=== PATIENT | male | born 1960 | race African-American/Black ===

== ENCOUNTER 2016-11-22 16:30 | Emergency (ER) | payer OTHER ==
--- NOTE | ~2016-11-22 | CR72 ---
[facility] A Service of [facility] & [facility] RADIOLOGY TEXT RESULTS PATIENT: MILAGRO SOW LOCATION: [facility] : 64 UNIT #: [id number] AGE: [address]: Luis Carlos Schultz MD SEX: M ORDER DR: [id number] [facility] [address] [place], [place] [address] [id number] E MR#: [id number] Acc #: [id number] NAME: MILAGRO SOW : 1960 SEX: M STUDY DATE/TIME: 11/22/2016 22:19 UNIT: [facility] ROOM: STUDY DESCRIPTION: CR Chest Single View Portable Attending Physician: Luis Carlos Schultz M.D. Ordering Physician: Luis Carlos Schultz M.D. Primary Care Physician: Primary Care Physician No MEDICAL IMAGING REPORT This report is preliminary unless electronic signature is present EXAM Portable chest INDICATION Pain from neck to groin, mild congestion for a week. FINDINGS A portable view of the chest was obtained. There is no comparison. The heart size and vascularity are normal and the lungs are clear and the bones are unremarkable. IMPRESSION No active disease. Dictated by... Ciro Llanos M.D. THIS IS AN ELECTRONICALLY VERIFIED REPORT Ciro Llanos M.D. at 11/24/2016 5:01 AM Benja TD: 11/23/2016 22:33 JOB #: [id number] MEDICAL IMAGING REPORT Page 1 of 1 COPY
--- NOTE | ~2016-11-22 | EKG ---
PATIENT: MILAGRO SOW UNIT #: [id number] Ventricular Rate: 66 BPM Atrial Rate: 66 BPM P-R Interval: 188 ms QRS Duration: 92 ms Q-T Interval: 410 ms QTC Calculation(Bezet): 429 ms P Redding: 55 degrees Calculated R Redding: 27 degrees Calculated T Redding: 43 degrees Diagnosis Line: Normal sinus rhythm with sinus arrhythmia Diagnosis Line: Normal ECG Diagnosis Line: No previous ECGs available Diagnosis Line: Confirmed by LUZ MARIA MILLS MD ([id number]) on Diagnosis Line: 11/23/2016 10:08:36 AM INTERPRETING MD: MAIK
--- NOTE | ~2016-11-22 | CT71 ---
[facility] A Service of [facility] RADIOLOGY TEXT RESULTS PATIENT: MILAGRO SOW LOCATION: [facility] : 64 UNIT #: [id number] AGE: [address]: Luis Carlos Schultz MD SEX: M ORDER DR: [id number] [place] [id number] [facility] [place], [place] [address] [id number] E MR#: [id number] Acc #: [id number] NAME: MILAGRO SOW : 1960 SEX: M STUDY DATE/TIME: 11/22/2016 23:20 UNIT: [facility] ROOM: STUDY DESCRIPTION: CT Head Wo Contrast Attending Physician: Luis Carlos Schultz M.D. Ordering Physician: Luis Carlos Schultz M.D. Primary Care Physician: Primary Care Physician No MEDICAL IMAGING REPORT This report is preliminary unless electronic signature is present EXAM CT scan of the brain without contrast INDICATION Weakness x2 days and headache x2 days. TECHNIQUE This CT exam was performed with one or more of the following radiation dose reduction techniques: automatic exposure control, adjustment of mA and/or kV according to patient size, and iterative reconstruction. FINDINGS Axial noncontrast images were obtained from the skull base to the vertex. Ventricular size and configuration are normal. There is no evidence of acute infarct or hemorrhage. There are no extra-axial fluid collections. No mass lesion or mass effect is seen. There are no skull fractures. IMPRESSION Normal noncontrast head CT. Dictated by... Ciro Llanos M.D. THIS IS AN ELECTRONICALLY VERIFIED REPORT Ciro Llanos M.D. at 11/24/2016 5:01 AM GLORY/effie TD: 11/24/2016 00:21 JOB #: [id number] MEDICAL IMAGING REPORT [facility] A Service of [facility] RADIOLOGY TEXT RESULTS PATIENT: MILAGRO SOW LOCATION: [facility] : 64 UNIT #: [id number] AGE: [address]: Luis Carlos Schultz MD SEX: M ORDER DR: Page 1 of 1 COPY
[2016-11-22 17:52] LABS: URINE SOURCE CLEAN CATCH
[2016-11-22 18:03] LABS: URINE APPEARANCE CLEAR; URINE BILIRUBIN NEG (NEG); URINE BLOOD NEG (NEG); URINE COLOR YELLOW; URINE GLUCOSE NEG (NEG); URINE KETONE TRACE (NEG); URINE LEUKOCYTE ESTERASE NEG (NEG); URINE NITRATE NEG (NEG); URINE PROTEIN NEG (NEG); URINE SPECIFIC GRAVITY 1.032 (1.003-1.035); URINE UROBILINOGEN 0.2 MG/DL (NEG)
[2016-11-22 18:10] LABS: BASOPHIL# 0.1 X10e3 (0-0.3); BASOPHIL% 1.4 % (0-2.5); EOSINOPHIL# 0.1 X10e3 (0-0.7); EOSINOPHIL% 1.3 % (0.0-7.0); HEMATOCRIT 46.3 % (38.0-50.0); HEMOGLOBIN 15.6 gm/dL (13.0-16.0); LYMPHOCYTE# 2.1 X10e3 (1.0-3.5); LYMPHOCYTE% 24.4 % (17.0-45.0); MEAN CELL VOLUME 86.1 FL (83-96); MEAN CORPUSCULAR HEMOGLOBIN 29.1 PG (28-34); MEAN CORPUSCULAR HGB CONC 33.7 g/dL (30-36); MEAN PLATELET VOLUME 7.7 FL (6.5-11.5); MONOCYTE# 0.8 X10e3 (0-1.0); MONOCYTE% 9.4 % (3.0-12.0); NEUTROPHIL# 5.4 X10e3 (1.5-7.1); NEUTROPHIL% 63.5 % (40-75); PLATELET COUNT 248 X10e3 (140-420); RED BLOOD COUNT 5.37 X10e (3.90-5.60); RED CELL DISTRIBUTION WIDTH 13.5 % (11.0-15.5); WHITE BLOOD COUNT 8.4 X10e3 (4.0-10.5)
[2016-11-22 18:20] LABS: DIFF IND NO
[2016-11-22 18:39] LABS: ALKALINE PHOSPHATASE 66 U/L (32-92); ALT (SGPT) 18 U/L (10-40); AST (SGOT) 19 U/L (10-42); BILIRUBIN,TOTAL 0.7 mg/dL (0.2-2.0); BLOOD UREA NITROGEN 16 mg/dL (9-23); CALCIUM SERUM 9.2 mg/dL (8.4-10.2); CARBON DIOXIDE 25 mmol/L (22-31); CHLORIDE 106 mmol/L (100-111); CREATININE SERUM 1.3 mg/dL (0.6-1.4); GLOM FILT RATE Estimated 61.9 mL/min (>60); GLUCOSE FASTING 100 mg/dL (70-110); POTASSIUM 4.5 mmol/L (3.5-5.1); PROTEIN TOTAL SERUM 8.2 g/dL (6.0-8.3); SODIUM 139 mmol/L (135-145)
[2016-11-22 18:42] LABS: BILIRUBIN, DIRECT <0.1 mg/dL (0.0-0.2); BILIRUBIN,INDIRECT 0.6 mg/dL (0.0-0.9)
[2016-11-22 19:05] LABS: CULTURE INDICATED? NO
[2016-11-22 21:59] LABS: POC - CKMB <1.0 ng/mL (0.0-7.9); POC - TROPONIN <0.05 ng/mL (<=0.05)
== END 2016-11-23 00:07 | disposition home or self-care (01) ==
LOC: CED 16:30
PROVIDERS: Emergency Medicine
DX: R51 Headache (principal); R10.32 Left lower quadrant pain; R10.31 Right lower quadrant pain
CPT/HCPCS: 36415; 70450; 71010; 80048; 80076; 81003; 82553; 84484; 85025; 93005; 99285